=== PATIENT | male | born 1935 | race Caucasian/White ===

== ENCOUNTER 2020-09-17 10:31 | Outpatient (NON) | payer MEDICARE, OTHER, SELFPAY ==
[2020-09-17 22:00] LABS: SARS-CoV-2 RNA PCR Positive
== END 2020-09-17 10:32 ==
DX: U07.1 COVID-19 (principal)
CPT/HCPCS: 87635; C9803; U0003

== ENCOUNTER 2023-11-16 10:00 | Outpatient (RCR) | payer MEDICARE, OTHER, SELFPAY ==
--- NOTE | 2023-10-26 10:02 | OPREHPOC ---
Outpatient Therapy Plan of Care This is a Multidisciplinary Plan of Care that may contain components documented by all disciplines (PT, OT, and ST.) PT Problem 1 PT Problem #1 Knowledge Deficit PT Goal 1 Goal *indep with HEP PT Problem 2 PT Problem #2 Impaired Strength PT Goal 1 Goal increase LE strength to improve gait and balance skills, to decrease fall risk: 1* mat exercises R and L LE x 20 reps with good control 2* single leg standing R x 8 seconds 3* single leg standing L x 8 seconds PT Problem 3 PT Problem #3 Impaired Functional Mobil PT Goal 1 Goal improve balance skills, for decrease risk falls, improve mobility: 1* Lobato balance score 55/56 2* 5 reps sit/stand 24 seconds 3* with alternating toe tap 8x- no toe catch 4* pt report NO loss of balance 5* further assess dizziness and vertigo symptoms
--- NOTE | 2023-10-26 10:02 | PTOPEVAL1 ---
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 He has not had any falls, but reports loss of balance and catching himself. Also has intermittent dizziness, that eases in 10-15 seconds; educated pt to hold position, safety with position changes. 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 He is active and goes to the fitness center 2x/wk. With the evaluation, he has weakness over both hip abduction and extension motions, decreased ankle strength; 5 rep sit/stand time of 31 seconds; Lobato balance score of 49/56 and poor gait pattern. Skilled PT services are indicated for therapeutic exercises and activities to increase LE strength, gait and balance skills. With education for home exercises and fitness center activities. Will further assess his vertigo issues. Plan of Care Interventions Gait Training,Neuro Re-education,Patient Education,Therapeutic Activities,Therapeutic Exercise PT Services Indicated Yes Treatment Frequency and 2x/wk for 6 visits Duration These treatments will address the objective and functional deficits as defined above. The patient will be advanced safely and appropriately in order for the patient to
--- NOTE | 2023-11-16 10:49 | PTOPDC ---
Assessment and note entered by Ashli Muniz, PT Discharge Information Assessment Status Discharge Diagnosis decreased gait and mobility Onset March 2023 Subjective Information balance is better; have been doing the exercises at home; have had dizziness a few times--recent with sitting and playing cards, was not moving his head, last usually 10-20 seconds; had carotid artery test and waiting for dr results; Reported Pain Level Pain Score Self Report Additional Pain Score Comments pain R ankle sometimes, started few weeks ago Assessment PT Clinical Summary Asa has received 6 PT sessions. Compared to the initial evaluation: he has improved in all areas: strength of R and L LE, but still has decreased strength and control of L ankle; gait pattern- no longer has foot slap, but has decreased L foot push off; 5 reps sit/stand time from 31 to 20 seconds; indep with HEP. Continues to have intermittent dizziness. The goals were partially met. Discharge PT services, and to continue with his HEP. Plan of Care PT Services Indicated No
== END 2023-11-16 11:37 | disposition home or self-care (01) ==
LOC: ANHPT 10:00
PROVIDERS: PCP Internal Medicine; Visit Provider Internal Medicine
DX: R26.89 Other abnormalities of gait and mobility (principal)
CPT/HCPCS: 97110; 97112; 97140; 97161; 97530

== ENCOUNTER → 2023-12-01 09:50 | Outpatient (CLI) | payer MEDICARE, OTHER, SELFPAY ==
--- NOTE | ~2023-12-01 | MR_ITS ---
EXAMINATION: MR shoulder LT wo con DATE: 12/01/2023 10:36 INDICATION: Chronic left shoulder pain TECHNIQUE: Magnetic resonance imaging (MRI) of the left shoulder was performed without intravenous co ntrast. Sequences included axial PD-weighted FS FSE, coronal oblique PD-weighted FS FSE, coronal obli que T2-weighted FS FSE, sagittal PD-weighted FS FSE, and sagittal T1-weighted SE. COMPARISON: None. FINDINGS: Coracoacromial arch: The acromion undersurface is curved in morphology (type II). Scarring and multiple foci of susceptibi lity artifact along the anterior margin of the acromion suggesting prior acromioplasty and likely res ection of the acromial insertion of the coracoacromial ligament. Moderate acromioclavicular osteoarth ritis with small inferiorly directed osteophytes at the lateral head of the clavicle. Rotator cuff: Mild to moderate supraspinatus, infraspinatus and subscapularis tendinopathy without discrete tear. T he teres minor tendon is normal. Normal rotator cuff muscle bulk and signal. Biceps tendon, glenoid labrum and glenohumeral cartilage: Moderate tendinopathy and longitudinal split tearing of the intra-articular and extra articular porti on of the long head biceps tendon. There is circumferential severe degenerative tearing of the glenoi d labrum with a few tiny para labral cysts along the posterior and inferior glenoid. There is diffuse full/near full-thickness cartilage loss along the glenoid with subarticular cystlike changes along t he adjacent rim of the anteroinferior and posterior inferior glenoid. Additional more localized nonun iform cartilage loss along the humeral head greatest superomedially where it appears to approach full -thickness with underlying tiny subarticular cystlike changes. Fluid: There is a small glenohumeral joint effusion with mild synovitis at the axillary recess. No loose os teochondral bodies. There is additional fluid and synovitis along the long head biceps tendon sheath consistent with tenosynovitis. No abnormal fluid signal in the subacromial/subdeltoid bursa to sugges t bursitis. Bones: Alignment is normal. No fracture or pathologic marrow replacing process. IMPRESSION: 1. 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 2. Diffuse degenerative tearing of the glenoid labrum. 3. Mild to moderate rotator cuff tendinopathy without discrete tear. 4. Bicipital tenosynovitis with moderate tendinopathy and longitudinal split tearing of the long head biceps tendon. 5. Postoperative change along the acromion suggestive of prior acromioplasty. Reviewed, dictated and finalized at location A. AL COORDINATOR IMPRESSION: 1. Moderate acromioclavicular and glenohumeral osteoarthritis with extensive hi gh-grade chondromalacia at the glenoid and the smaller region of high-grade cho ndral malacia the superomedial humeral head. 2. Diffuse degenerative tearing of the glenoid labrum. 3. Mild to moderate rotator cuff tendinopathy without discrete tear. 4. Bicipital tenosynovitis with moderate tendinopathy and longitudinal split te aring of the long head biceps tendon. 5. Postoperative change along the acromion suggestive of prior acromioplasty.
== END ==
PROVIDERS: PCP Internal Medicine; Visit Provider Physician Assistant
DX: M19.012 Primary osteoarthritis, left shoulder (principal); M75.22 Bicipital tendinitis, left shoulder
CPT/HCPCS: 73221

== ENCOUNTER 2024-03-04 07:58 | Outpatient (RCR) | payer MEDICARE, OTHER, SELFPAY ==
--- NOTE | 2024-03-04 09:05 | OPREHPOC ---
Outpatient Therapy Plan of Care This is a Multidisciplinary Plan of Care that may contain components documented by all disciplines (PT, OT, and ST.) PT Problem 1 PT Problem #1 Knowledge Deficit PT Goal 1 Goal *indep with HEP Target Visit 8 PT Problem 2 PT Problem #2 Impaired Vestibular Syste PT Goal 1 Goal improve vestibular system and occulomotor system to decrease dizziness: pt perform without symptoms: 1* standing eye tracking R/L x 20 reps 2* standing eye tracking up/down x 20 reps 3* further assessment of vestibular system as treatment progress Target Visit 8
--- NOTE | 2024-03-04 09:06 | PTOPEVAL1 ---
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 saw ENT and sent him here Symptoms: have dizziness and light headedness; get light headed, then dizziness starts; things spinning and then lose balance, last 10-15 seconds pt tracked his dizziness: tends to occur in AM 6- 730; occassional in evenings; onset: standing and shaving in AM; hung up coat at gym and turned to walk into gym; mild problems with driving; have bilateral hearing aids, recent test and to get new ones; blind in R eye; sinus and allergies, use nasal sprays; have reading glasses- recent eye exam; NO issues with: rolling in bed, supine/sit/stand transfer Activity: active, regular fitness exercise with walking and resisted weight equiptment; some problems with walking due to neuropathy in feet and walking uneven surfaces; Now-- is driving due to dizziness; Reported Pain Level Pain Score 0: Self Report Assessment PT Clinical Summary Trey has the diagnosis of vestibular rehab. Dizziness Handicap Index rating of 10% limitation in activity level. He reports symptoms have decreased in severity and intensity. With the testing: BPPV testing was negative; with eye tracking, he
--- NOTE | 2024-03-04 09:07 | PCPTNOTE ---
during eval, pt reports he will be out of town for the next 2 weeks. He will call to make appt when he returns to town.
--- NOTE | 2024-03-22 13:29 | PCPTNOTE ---
pt called and left message. Returned the call. He stated since here for therapy, has had only one almost dizziness coming on, but it did not happen. Has continued to take the magnesium and do the eye exercises and doing well. Has an appointment next week with ENT. Discussed will keep his chart open for 4 more weeks, if something changes to call for appt, otherwise he will be discharged in 4 weeks from PT and need a new order to return for treatment.
--- NOTE | 2024-05-02 10:47 | PTOPDC ---
Assessment and note entered by Ashli Muniz, PT Discharge Report Assessment Status Discharge - Pt Not Present Diagnosis vestibular therapy Onset June 2023 Subjective Information pt was not seen this date. He called on March 22 and stated he was doing better. Discussed with him, his chart would be kept open for 30 days, in case he would need additional therapy. Assessment PT Clinical Summary Trey received the PT evaluation on March 04. He called on March 22 as above--feeling better. He did not receive any further treatment. Discharge PT services. The goals were not addressed. Plan of Care PT Services Indicated No
== END 2024-05-02 13:34 | disposition home or self-care (01) ==
LOC: ANHPT 07:58
PROVIDERS: PCP Internal Medicine
DX: H81.90 Unspecified disorder of vestibular function, unspecified ear (principal)
CPT/HCPCS: 97110; 97161; 97530